=== PATIENT | male | born 1960 | race Caucasian/White ===

== ENCOUNTER 2017-09-30 20:56 | Emergency (ER) | payer OTHER ==
[~2017-09-30] VITALS: Ht 175.3 cm; Wt 83.9 kg
[2017-09-30] MEDS ORDERED: AMLODIPINE-OLM1 EACH PO (21:04)
[2017-09-30] MEDS ORDERED: ASPIR 8181 MG PO (21:05)
[2017-09-30] MEDS ORDERED: LIPITOR 20 MG T20 M1 PO (21:05)
[2017-09-30] MEDS ORDERED: UNICOMPLEX M TA1 TA1 PO (21:05)
[2017-09-30] MEDS ORDERED: BISOPROLOL-HCT1 EACH PO (21:05)
[2017-09-30] MEDS ORDERED: PREDNISONE 20 M20 MG PO (22:56)
[2017-09-30] MEDS ORDERED: EPIPEN0.3 MG/0.1 IM (22:56)
[2017-09-30 23:05] VITALS: BP 106/61
== END 2017-09-30 23:05 | disposition home or self-care (01) ==
LOC: M.ERS 20:56
DX: T63.461A Toxic effect of venom of wasps, accidental (unintentional), initial encounter (principal); T78.40XA Allergy, unspecified, initial encounter; I10 Essential (primary) hypertension; E78.00 Pure hypercholesterolemia, unspecified; F17.210 Nicotine dependence, cigarettes, uncomplicated; Y92.89 Other specified places as the place of occurrence of the external cause